=== PATIENT | male | born 1990 | race Asian ===

== ENCOUNTER 2018-10-13 06:04 | Day surgery (SDC) | payer BC ==
[~2018-10-13] VITALS: Ht 172.7 cm; Wt 124.5 kg
[2018-10-13 07:08] VITALS: Ht 172.7 cm; Wt 124.5 kg
[2018-10-13] MEDS ORDERED: BENAZEPRIL (07:13)
[2018-10-13 07:40] VITALS: BP 159/96; PULSE 93; RESP 18
[2018-10-13] MEDS ORDERED: PROPOFOL 60 ML ONE (08:27)
[2018-10-13 08:58] VITALS: BP 138/63; PULSE 104; RESP 15
== END 2018-10-13 11:49 | disposition home or self-care (01) ==
LOC: GIL 06:04
PROVIDERS: ATTEND Internal Medicine Gastroenterology
DX: K64.8 Other hemorrhoids (principal); I10 Essential (primary) hypertension
CPT/HCPCS: 45378; 88305; Z7610